=== PATIENT | male | born 1990 | race Two or more races ===

== ENCOUNTER 2017-03-03 13:08 | Emergency (ER) | payer OTHER ==
[~2017-03-03] VITALS: Ht 170.2 cm; Wt 86.2 kg
[2017-03-03 13:10] VITALS: BP 138/77
== END 2017-03-03 14:08 | disposition home or self-care (01) ==
LOC: ER 13:09
DX: S90.31XA Contusion of right foot, initial encounter (principal); B35.3 Tinea pedis; F17.210 Nicotine dependence, cigarettes, uncomplicated; Y93.39 Activity, other involving climbing, rappelling and jumping off; Y92.89 Other specified places as the place of occurrence of the external cause; Y99.8 Other external cause status
CPT/HCPCS: 73630; 99284; 99406; A4606; Z7610

== ENCOUNTER 2017-03-04 12:59 | Emergency (ER) | payer OTHER ==
[~2017-03-04] VITALS: Ht 170.2 cm; Wt 86.2 kg
[2017-03-04 13:04] VITALS: BP 135/74
== END 2017-03-04 13:49 | disposition home or self-care (01) ==
LOC: ER 13:00
DX: B35.3 Tinea pedis (principal)
CPT/HCPCS: 99281; A4606; Z7502; Z7610